=== PATIENT | male | born 1985 | race Caucasian/White ===

== ENCOUNTER 2023-06-07 01:18 | Emergency (ER) | payer MEDICAID ==
[~2023-06-07] VITALS: Ht 154.9 cm; Wt 81.6 kg
[2023-06-07 01:59] VITALS: BP 144/87; TEMP 98.1; O2SAT 99
== END 2023-06-07 05:45 | disposition home or self-care (01) ==
LOC: ER 01:36
DX: H61.21 Impacted cerumen, right ear (principal); Z59.00 Homelessness unspecified